=== PATIENT | female | born 1960 ===

== ENCOUNTER 2023-10-06 04:23 | Day surgery (SDC) | payer OTHER ==
[2023-10-04 10:13] VITALS: BMI 39.9
[2023-10-06] MEDS ORDERED: oxyCODONE HCL 5 MG TABLET PO PRN (10:55)
[2023-10-06] MEDS ORDERED: PROMETHAZINE HCL 25 MG/1 ML VIAL IVPB PRN (10:55)
[2023-10-06] MEDS ORDERED: ONDANSETRON 4 MG/2 ML VIAL IVPUSH PRN (10:55)
[2023-10-06] MEDS ORDERED: LACTATED RINGERS SOLUTION 1,000 ML IV SCH (11:00)
[2023-10-06] MEDS ORDERED: LIDOCAINE HCL/PF 2% SDV 5ML VIAL ONE (11:08)
[2023-10-06] MEDS ORDERED: FENTANYL CITRATE/PF 50 MCG/ML VIAL ONE (11:08)
[2023-10-06] MEDS ORDERED: PROPOFOL 20 ML ONE (11:08)
[2023-10-06] MEDS ORDERED: MIDAZOLAM HCL 2 MG/2 ML SINGLE DOSE VIAL ONE (11:08)
[2023-10-06] MEDS ORDERED: KETOROLAC TROMETHAMINE 30 MG/1 ML VIAL ONE (11:33)
[2023-10-06] MEDS ORDERED: ACETAMINOPHEN INJECTION 100 ML IVPB ONE (11:38)
[2023-10-06 13:03] VITALS: RESP 18
[2023-10-06 14:43] VITALS: PULSE 78
[2023-10-06 14:49] VITALS: BP 133/73; TEMP 97.8
== END 2023-10-06 14:23 | disposition home or self-care (01) ==
LOC: JASU-SURG 04:23
PROVIDERS: ATTEND Obstetrics & Gynecology Obstetrics
PROC: 0UB98ZZ Excision of Uterus, Via Natural or Artificial Opening Endoscopic (ICD-10-PCS; principal; 2023-10-06 11:00)
DX: N95.0 Postmenopausal bleeding (principal); N84.0 Polyp of corpus uteri; N81.10 Cystocele, unspecified
CPT/HCPCS: 88305-TC; 88341-TC; 88342-TC; 94760; J0131